=== PATIENT | male | born 1970 | race Caucasian/White ===

== ENCOUNTER 2018-09-11 14:28 | Emergency (ER) | payer OTHER ==
[2018-09-11 15:02] VITALS: BP 151/95
--- NOTE | 2018-09-11 15:03 | UC ---
Lower Extremity/Ankle HPI - HPI Summary HPI Summary: 47 yo male presents with right calf cramping. He tells me that over the last week he has had persistent right calf cramping and aches. Pain does not change with ambulation, weight bearing, or rest. He denies specific injury or strain of the area. He has taken aspirin because he is concerned about a blood clot, but has had no change in his symptoms. No family hx or personal hx of blood clots. Denies SOB, chest pain, recent travel, or injury to the area. - History of Current Complaint Chief Complaint: UCLowerExtremity Stated Complaint: BODYACHES Time Seen by Provider: 09/11/18 15:03 Hx Obtained From: Patient Onset/Duration: Gradual Onset Severity Initially: Mild Severity Currently: Mild Pain Intensity: 2 Pain Scale Used: 0-10 Numeric - Allergies/Home Medications Allergies/Adverse Reactions: Allergies Allergy/AdvReac Type Severity Reaction Status Date / Time No Known Allergies Allergy Verified 09/11/18 14:52 Home Medications: Home Medications Aspirin 81 mg CHEW TAB* [Aspirin Low Dose TAB*] 243 mg PO ONCE 09/11/18 [ History Confirmed 09/11/18] Bupropion XL* [Wellbutrin XL *] 150 mg PO DAILY 09/11/18 [History Confirmed ] Citalopram TAB* [CeleXA TAB*] 20 mg PO DAILY 09/11/18 [History Confirmed ] Metformin HCl 500 mg PO BID 09/11/18 [History Confirmed 09/11/18] PMH/Surg Hx/FS Hx/Imm Hx Endocrine History: Diabetes Psychological History: Anxiety, Depression - Surgical History Surgical History: None - Family History Known Family History: Positive: Cardiac Disease - Social History Alcohol Use: None Substance Use Type: None Smoking Status (MU): Never Smoked Tobacco Review of Systems All Other Systems Reviewed And Are Negative: Yes Constitutional: Positive: Negative Skin: Positive: Negative Respiratory: Positive: Negative Cardiovascular: Positive: Negative Neurovascular: Positive: Negative Musculoskeletal: Positive: Other: - right calf pain Neurological: Positive: Negative Psychological: Positive: Negative Physical Exam - Summary Physical Exam Summary: GENERAL: NAD. WDWN. No pain distress. SKIN: No rashes, sores, lesions, or open wounds. CHEST: No accessory muscle use. Breathing comfortably and in no distress. CV: Pulses intact PT and DP. Cap refill <2seconds MSK: RIGHT CALF: Mild edema compared to left. NTTP. negative jae sign. Mild TTP about achilles tendon. FROM without pain at right knee and ankle. Strength 5 /5. Negative [place] test. NEURO: Alert. Sensations intact and symmetric B/L LEs PSYCH: Age appropriate behavior. Triage Information Reviewed: Yes Vital Signs: Initial Vital Signs Temp 97.9 F 09/11/18 14:55 Pulse 81 09/11/18 14:55 Resp 14 09/11/18 14:55 BP 151/95 09/11/18 14:55 Pulse Ox 99 09/11/18 14:55 Vital Signs Reviewed: Yes Lower Extremity Course/Dx - Course Course Of Treatment: Suspect achilles tendinitis vs DVT. US reveals: IMPRESSION: NO EVIDENCE OF DEEP VENOUS THROMBOSIS IS IDENTIFIED. FLUID IS NOTED IN THE POPLITEAL FOSSA EXTENDING TO THE MID CALF. Given US findings and clinical exam suspect this is/was a ruptured wong's cyst that will resolve with time. Advised to RICE and take tylenol/ibuprofen and f/u with his PCP in 2-3 weeks for a recheck. - Differential Dx/Diagnosis Provider Diagnosis: Wong's cyst, ruptured Discharge - Sign-Out/Discharge Documenting (check all that apply): Patient Departure All imaging exams completed and their final reports reviewed: Yes - Discharge Plan Condition: Stable Disposition: HOME Patient Education Materials: Bakers Cyst (ED) Referrals: Keyon Westfall MD [Primary Care Provider] - Additional Instructions: If you develop a fever, shortness of breath, chest pain, new or worsening symptoms - please call your PCP or go to the ED immediately. Your blood pressure was high at todays visit. Please see your primary provider within 4 weeks for recheck and re-evaluation. 1) You do not have a blood clot in your leg, but you do have a collection of fluid behind your knee into your calf - likely from a ruptured wong's cyst. I suspect this will resolve in time. 2) Please schedule a follow up appointment with your primary doctor for a recheck in 2-3 weeks. - Billing Disposition and Condition Condition: STABLE Disposition: Home
== END 2018-09-11 16:19 | disposition home or self-care (01) ==
LOC: UCEAST 14:28
DX: M66.0 Rupture of popliteal cyst (principal); M79.661 Pain in right lower leg; E11.9 Type 2 diabetes mellitus without complications; Z79.84 Long term (current) use of oral hypoglycemic drugs; F32.9 Major depressive disorder, single episode, unspecified; Z79.82 Long term (current) use of aspirin
CPT/HCPCS: 99201; G0463